=== PATIENT | female | born 1940 | race Caucasian/White ===

== ENCOUNTER 2024-11-10 19:14 | Emergency (ER) | payer MEDICARE, SELFPAY ==
[2024-11-10 19:20] VITALS: BP 156/67; BMI 26.6
[2024-11-10] MEDS: MORPHINE SULFATE 4 MG IV (19:59)
[2024-11-10] MEDS: ZOFRAN 4 MG IV (20:00)
--- NOTE | 2024-11-10 21:08 | ED.MUSCINJ ---
HPI-Injury
General
Chief Complaint: Fall
Source: patient
Exam Limitations: none
Time Seen by Provider: 11/10/24 19:19
History of Present Illness-Injury
Is this injury a work related problem?: No
Is pt an associate of [facility]/[place]?: No
Initial Injury comments:
Patien to ED s/p trip and fall. Tripped over rug and fell onto her left knee. Hit forhead on floor. NO LOC. COmplains of pain to her left knee. Injury occured just [employer]. Brought to ED via EMS
Past History
Past History
ED Past Medical History: Cancer (breast 2011), HTN, Hypercholesterolemia, NIDDM and Other (CKD, IBS, [place])
ED Past Surgical History: Cholecystectomy, Gynecological (hysterectomy), Orthopedic ([id number], RTKR 2022) and Other (mastectomy)
Review of Systems
Review of Systems
Allergies reviewed?: Yes
All Other Systems: ROS reviewed and negative except as documented in HPI and ROS
Constitutional: Reports no symptoms
EENT: Reports no symptoms
Respiratory: Reports no symptoms
Cardiac: Reports no symptoms
ABD/GI: Reports no symptoms
Musculoskeletal: Reports joint pain (Pain to right knee)
Skin: Reports no symptoms
Neurological: Reports no symptoms
Psychiatric: Reports no symptoms
Musculoskeletal Injury Exam
Musculoskeletal Injury Exam
Right Knee:
Pain with Movement?: Moderate
Tender to palpation?: Moderate
Soft tissue swelling?: Moderate
External deformity and angulation?: None
Joint effusion?: None
Contusion?: Moderate
Hematoma-local bleeding into tissue?: Moderate
Strain- Sprain- Tear (Connective tissue injury)?: Moderate
Crepitus with movement?: No
Joint instability?: No
Malalignment/deformity?: No
Range of motion: Limited
Distal skin color and temperature: normal-warm & good color
Capillary Refill: normal
Normal distal neurovascular exam?: Yes
Peripheral Pulses: posterior tibial (left): 3+ and dorsalis pedis (left): 3+
Phy Exam
General Physical Exam
General Presentation: moderate distress
General age: appears stated age
General Skin: warm and dry
General Habitus: normal
General Mental: alert
General Hydration: appears well hydrated
Cardiovascular Exam
Cardiovascular Exam: regular rate/rhythm
Pulmonary Exam
Pulmonary Exam: lungs clear, no respiratory distress and chest non tender
Gastrointestinal Exam
Gastrointestinal Exam: non tender, soft and no organomegaly
Musculoskeletal Exam
Musculoskeletal Exam: neuro vasc intact
Skin Exam
Skin Exam: normal color, warm/dry and no rash
Psychiatric Exam
Psychiatric Exam: normal mood/affect
Injury Course
Orders/Labs/Results
Orders:
Orders
11/10/24 19:15
Knee, Left 4 or More Views [CR Knee - Left 4 Or More View*] Urgent
Comment:
Reason For Exam: injury post fall, notable swelling
11/10/24 19:30
CT Head W/o Iv Contrast Urgent
Comment:
Reason For Exam: Trauma
Morphine Sulfate 4 mg IV NOW STA
Ondansetron Injectable [Zofran] 4 mg IV NOW STA
11/10/24 21:22
Type+Screen Urgent
Complete Blood Count/With Diff Urgent
Comprehensive Metabolic Panel Urgent
PTT Urgent
Prothrombin Time Urgent
11/10/24 21:24
0.9% Sodium Chloride 1000 ml [Nss] 1,000 ml IV BOLUS
Abnormal Lab Results
11/10/24 11/10/24
21:14 21:22
WBC 13.8 H 10^3/uL
(4.8-10.8)
RBC 3.49 L 10^6/uL
(4.20-5.40)
Hgb 11.0 L g/dL
(12.0-16.0)
Hct 33.6 L %
(37.0-47.0)
MCH 31.5 H pg
(27.0-31.0)
MCHC 32.7 L g/dL
(33.0-37.0)
Abs Immat Gran (auto) 0.1 H 10^3/uL
(0-0.05)
Absolute Neuts (auto) 11.8 H 10^3/uL
(1.4-6.5)
Absolute Monos (auto) 0.7 H 10^3/uL
(0.1-0.6)
Immature Gran % 0.7 H %
(0-0.5)
Neutrophils % 85.2 H %
(42.2-75.2)
Lymphocytes % 9.0 L %
(20.5-51.1)
POC Glucose 153 H mg/dl
(70-99)
11/10/24 21:22
*Radiology
Radiology exam reviewed: radiology read reviewed
Update Note
Update Note:
Patient to ED s/p trip and fall. Hit forehead on floor. No LOC. Landed on left knee. COmplains of pain to left knee. Had bilateral knee replacements thru Dr. Austin, R knee last year, left knee 200 and she requests to stay with [facility]. Xry reveals
comminuted, displaced, angulated periprosthetic fx of distl femur. Discussed case with Dr. Ornelas who recommends transfer to [facility] to follow with Dr. Garcia and Dr. Alcaraz. Patient and son are agreeable to transfer plan.
ED Attending Note
-
Portions of this chart may have been created with voice recognition software.� Occasional wrong word or��sound alike� substitutions may have occurred due to the inherent limitations of voice recognition software.
Discharge Plan
Departure
Referrals:
Tesfaye Miner MD [Family Provider] -
Interventions
Interventions:
*Risk Screen - Suicide Last Done: 11/10/24 19:19
*General Assessment Last Done: 11/10/24 19:19
*Neglect/Abuse Screening Last Done: 11/10/24 19:19
*ED COVID-19 Vaccine History Last Done: 11/10/24 19:19
ED-Musculoskeletal Assessment Last Done: 11/10/24 19:22
ED- Neurological Assessment Last Done: 11/10/24 19:22
ED-Skin Assessment Last Done: 11/10/24 19:22
Discharge Date and Time
Print Language: SETS[place]
[2024-11-10 21:15] LABS: Glucose - Point of Care 153 mg/dl (70-99)
[2024-11-10] MEDS: NSS 1000 IV (21:25)
[2024-11-10 21:33] LABS: % Basophils 0.2 % (0-2); % Eosinophils 0.2 % (0-6); % Immature Granulocytes 0.7 % (0-0.5); % Monocytes 4.7 % (1.7-9.3); % Neutrophils 85.2 % (42.2-75.2); Absolute Immature Granulocytes 0.1 10^3/uL (0-0.05); Absolute Lymphocytes 1.2 10^3/uL (1.2-3.4); Absolute Monocytes 0.7 10^3/uL (0.1-0.6); Absolute Neutrophils 11.8 10^3/uL (1.4-6.5); Hematocrit 33.6 % (37.0-47.0); Mean Corp Hgb Conc. 32.7 g/dL (33.0-37.0); Mean Corpuscular Hgb 31.5 pg (27.0-31.0); Mean Corpuscular Volume 96.3 fL (81.0-99.0); Mean Platelet Volume 9.5 fL (7.4-10.4); Nucleated Red Blood Cells % 0 %; Platelet Count 194 10^3/uL (130-400); Red Blood Cell Count 3.49 10^6/uL (4.20-5.40); Red Cell Dist. Width 13.2 % (11.5-14.5); White Blood Cell Count 13.8 10^3/uL (4.8-10.8)
[2024-11-10 21:43] LABS: INR 1.01; PT 13.6 Sec (11.4-14.6)
[2024-11-10 21:44] LABS: APTT 26.8 Sec (23.4-35.0); Blood Urea Nitrogen 26 mg/dl (7-17); Calcium 8.8 mg/dl (8.4-10.2); Carbon Dioxide 22 mmol/L (22-30); Chloride 102 mmol/L (98-107); Estimated Creatinine Clearance 50 ml/min; Glucose 153 mg/dl (70-99); Sodium 135 mmol/L (135-145); eGFR > 60.00
[2024-11-10 22:10] VITALS: BP 113/47
[2024-11-10 23:00] VITALS: BP 134/61
[2024-11-10 23:44] LABS: Glucose - Point of Care 165 mg/dl (70-99)
== END 2024-11-10 23:48 | disposition short-term general hospital (02) ==
LOC: EMR 19:14
PROVIDERS: Nurse Practitioner; EMERGENCY PHYSICIAN Emergency Medicine; FAMILY PHYSICIAN Family Medicine
DX: S72.492A Other fracture of lower end of left femur, initial encounter for closed fracture (principal); M97.12XA Periprosthetic fracture around internal prosthetic left knee joint, initial encounter; W18.09XA Striking against other object with subsequent fall, initial encounter; Z96.653 Presence of artificial knee joint, bilateral
CPT/HCPCS: 99285; 96374; 96375; 96361; 70450; 73564; 80048; 82962; 85025; 85610; 85730; 86850; 86900; 86901

== ENCOUNTER 2025-09-20 18:33 | Emergency (ER) | payer MEDICARE, SELFPAY ==
[2025-09-20 18:38] VITALS: BP 184/99
[2025-09-20 18:40] LABS: Glucose - Point of Care 112 mg/dl (70-99)
--- NOTE | 2025-09-20 19:10 | ED.GENMED ---
History of Present Illness
General
Chief Complaint: Blood Sugar Problem
Source: patient
Exam Limitations: none
Time Seen by Provider: 09/20/25 19:03
History of Present Illness
History of Present Illness:
85yoF with history of insulin-dependent diabetes who checked herself into the ED requesting a dose of insulin. Patient is here with a family member. She was rushing when she got ready and forgot to bring her mealtime insulin with her. She did
bring food including a bread stick, salmon, and pistachios. She typically takes 4 units of lispro with meals. She is requesting to receive this in the ED so she is able to eat her dinner. She has no other complaints at this time.
Past History
Past History
ED Past Medical History: Cancer (breast 2010), HTN, Hypercholesterolemia, NIDDM and Other (CKD, IBS, [place])
ED Past Surgical History: Cholecystectomy, Gynecological (hysterectomy), Orthopedic ([id number], RTKR 2022) and Other (mastectomy)
Phy Exam
General Physical Exam
General Presentation: well appearing and no apparent distress
General Skin: warm and dry
General Habitus: normal
General Mental: alert
ENT Exam
ENT Exam: normocephalic
Pulmonary Exam
Pulmonary Exam: no respiratory distress
Neurological Exam
Neurological Exam: alert
Sridevi Coma Scale
Eye Opening: Spontaneous
Verbal Response: Oriented
Motor Response: Obeys Commands
GCS Total Score: 15
Skin Exam
Skin Exam: normal color and warm/dry
Psychiatric Exam
Psychiatric Exam: normal mood/affect
Course
Orders/Labs/Results
Orders:
Orders
09/20/25 19:08
Insulin Aspart [NOVOLOG vial] 3 units SC NOW STA
Abnormal Lab Results
09/20/25
18:39
POC Glucose 112 H mg/dl
(70-99)
Vital Signs
Initial and Last Documented VS:
Initial Vital Signs
Pulse Resp BP Pulse Ox
71 16 184/99 97
09/20/25 18:38 09/20/25 18:38 09/20/25 18:38 09/20/25 18:38
Last Documented Vital Signs
Pulse Resp BP Pulse Ox
71 16 184/99 97
09/20/25 18:38 09/20/25 18:38 09/20/25 18:38 09/20/25 19:12
MDM/Problems Addressed
Differential Diagnosis Includes:
85yoF here requesting her dinnertime insulin dose. Came to the ED with a family member and forgot to bring her insulin. No complaints at this time. Fingerstick glucose is 112. She normally takes 4 units Lispro at meals. Will provide 3 units here.
She does have dinner with her that she will eat immediately after receiving the the insulin. Patient discharged in stable condition.
*Pulse Oximetry
SaO2: 97
Oxygen Mode of Delivery: Room air
Patient hypoxic: no
*Critical Care Note
Total Time (30-74mins, 75-104mins- exclusive of procedures): Not Applicable
ED Attending Note
-
Portions of this chart may have been created with voice recognition software.� Occasional wrong word or��sound alike� substitutions may have occurred due to the inherent limitations of voice recognition software.
Discharge Plan
Departure
Patient Disposition: Home (Routine Discharge)
Date of Disposition: 09/20/25
Time of Disposition: 19:12
Patient with high blood pressure during this ER visit?: Yes
Discharge Problem:
Insulin dependent diabetes mellitus
Instructions: Insulin Lispro
Activity Restrictions/Additional Instructions:
Continue taking your insulin as prescribed by your doctor and monitor your blood sugars at home.
Interventions
Interventions:
*Risk Screen - Suicide Last Done: 09/20/25 19:30
*General Assessment Last Done: 09/20/25 19:30
*Neglect/Abuse Screening Last Done: 09/20/25 19:30
*ED- Fall Risk Assessment Last Done: 09/20/25 19:30
*ED COVID-19 Vaccine History Last Done: 09/20/25 19:30
*ED Influenza Vaccine History Last Done: 09/20/25 19:30
*Nursing Disposition Last Done: 09/20/25 19:32
ED- Neurological Assessment Last Done: 09/20/25 19:30
Discharge Date and Time
Discharge Date/Time: 09/20/25 19:32
Print Language: KOSOV[place]
[2025-09-20] MEDS: NOVOLOG vial 3 UNITS SC (19:27)
== END 2025-09-20 19:32 | disposition home or self-care (01) ==
LOC: EMR 18:33
PROVIDERS: EMERGENCY PHYSICIAN Emergency Medicine; FAMILY PHYSICIAN Family Medicine
DX: E10.22 Type 1 diabetes mellitus with diabetic chronic kidney disease (principal); I12.9 Hypertensive chronic kidney disease with stage 1 through stage 4 chronic kidney disease, or unspecified chronic kidney disease; N18.9 Chronic kidney disease, unspecified; E78.00 Pure hypercholesterolemia, unspecified; K58.9 Irritable bowel syndrome, unspecified; E80.4 Gilbert syndrome; Z79.4 Long term (current) use of insulin; Z85.3 Personal history of malignant neoplasm of breast; Z90.10 Acquired absence of unspecified breast and nipple; Z96.653 Presence of artificial knee joint, bilateral
CPT/HCPCS: 99284; 96372; 82962